=== PATIENT | male | born 1960 | race Caucasian/White ===

== ENCOUNTER 2024-05-02 06:28 | Day surgery (SDC) | payer BC, SELFPAY | END 2024-05-02 10:29 | disposition home or self-care (01) | LOC: GI 06:28 | PROVIDERS: ATTENDING PHYSICIAN Internal Medicine | DX: Z12.11 Encounter for screening for malignant neoplasm of colon (principal); K57.30 Diverticulosis of large intestine without perforation or abscess without bleeding; D12.8 Benign neoplasm of rectum; K63.5 Polyp of colon; Z86.0101 Personal history of adenomatous and serrated colon polyps | CPT/HCPCS: 45385; 45380; 88305 ==

== ENCOUNTER → 2024-05-09 06:39 | Day surgery (SDC) | payer BC, SELFPAY | LOC: GI 06:39 | PROVIDERS: ATTENDING PHYSICIAN Internal Medicine | DX: K29.50 Unspecified chronic gastritis without bleeding (principal); K22.89 Other specified disease of esophagus; K44.9 Diaphragmatic hernia without obstruction or gangrene; K31.7 Polyp of stomach and duodenum; I48.91 Unspecified atrial fibrillation; R13.10 Dysphagia, unspecified | CPT/HCPCS: 43251; 43239; 88305; 88342; 93005 ==

== ENCOUNTER → 2024-06-07 07:06 | Outpatient (REF) | payer BC, SELFPAY | LOC: RCS 07:06 | PROVIDERS: ATTENDING PHYSICIAN Internal Medicine Cardiovascular Disease; FAMILY PHYSICIAN Family Medicine | DX: I48.19 Other persistent atrial fibrillation (principal) | CPT/HCPCS: 93306 ==

== ENCOUNTER 2024-06-22 06:02 | Day surgery (SDC) | payer BC, SELFPAY ==
[2024-06-16 09:19] LABS: % Basophils 0.6 % (0-2); % Eosinophils 1.8 % (0-6); % Immature Granulocytes 0.2 % (0-0.5); % Lymphocytes 27.5 % (20.5-51.1); % Monocytes 7.2 % (1.7-9.3); % Neutrophils 62.7 % (42.2-75.2); Absolute Basophils 0.1 10^3/uL (0-0.2); Absolute Eosinophils 0.2 10^3/uL (0-0.7); Absolute Lymphocytes 2.6 10^3/uL (1.2-3.4); Absolute Monocytes 0.7 10^3/uL (0.1-0.6); Absolute Neutrophils 5.8 10^3/uL (1.4-6.5); Hematocrit 42.2 % (39.0-52.0); Hemoglobin 14.4 g/dL (13.0-18.0); Mean Corp Hgb Conc. 34.1 g/dL (33.0-37.0); Mean Corpuscular Hgb 28.1 pg (27.0-31.0); Mean Corpuscular Volume 82.4 fL (80.0-94.0); Mean Platelet Volume 9.3 fL (7.4-10.4); Nucleated Red Blood Cells % 0 % (-); Platelet Count 308 10^3/uL (130-400); Red Blood Cell Count 5.12 10^6/uL (4.70-6.10); Red Cell Dist. Width 14.2 % (11.5-14.5); White Blood Cell Count 9.3 10^3/uL (4.8-10.8)
[2024-06-16 09:29] LABS: INR 1.09; PT 14.7 Sec (11.4-14.6)
[2024-06-16 09:52] LABS: ALT (SGPT) 18 U/L (0-50); AST (SGOT) 22 U/L (17-59); Albumin 4.2 g/dl (3.5-5.0); Alkaline Phosphatase 95 U/L (38-126); Blood Urea Nitrogen 11 mg/dl (9-20); Calcium 9.5 mg/dl (8.4-10.2); Carbon Dioxide 25 mmol/L (22-30); Chloride 100 mmol/L (98-107); Glucose 111 mg/dl (70-99); Magnesium 1.8 mg/dl (1.6-2.3); Potassium 4.2 mmol/L (3.5-5.1); Sodium 138 mmol/L (135-145); Total Bilirubin 0.4 mg/dl (0.2-1.3); eGFR > 60.00
[2024-06-16 10:00] VITALS: BMI 39.9
[2024-06-22] VITALS (11 sets, daily range): BP systolic 110–145; BP diastolic 71–99; BMI 39.2
[2024-06-22 09:15] LABS: ACT-LR - POC 260 Seconds (116-155)
[2024-06-22 09:33] LABS: ACT-LR - POC 274 Seconds (116-155)
[2024-06-22 09:52] LABS: ACT-LR - POC 308 Seconds (116-155)
--- NOTE | 2024-06-22 11:07 | ITS.CL.ABL ---
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
Ablation
Procedure Report:
ELECTROPHYSIOLOGIC STUDY AND POSSIBLE ABLATION
DATE: June 22, 2024
Primary Care Provider: Dr Pepe Early
Primary Accident Examiner: Dr. Margarito Hughes
INDICATION:
Symptomatic Atrial Fibrillation.
Persistent
HISTORY: See H and P.
Symptomatic AF, poorly controlled with attempted medical therapy
HAS-BLED: 1
Age
CHADSVASc: 1
HTN
Additional atrial fibrillation risk factors include obstructive sleep apnea and morbid obesity.
PRESENTING RHYTHM: AF
HISTORY: See H and P.
Symptomatic AF, poorly controlled with attempted medical therapy.
ANTICOAGULATION: Eliquis 5 mg twice daily
'TIME-OUT': called and confirmed.
SEDATION/ANESTHESIA: provided via the anesthesia department using general anesthesia.
PROCEDURE:
Ultrasound Guidance performed by sc was utilized for femoral venous Vascular Access b/l.
A decapolar CS catheter was placed within the CS for mapping and pacing.
The intracardiac ultrasound catheter was positioned in the RA for continuous intracardiac ultrasound imaging.
Heparin bolus and infusion to target ACT at 300 -350 seconds was administered. Transseptal puncture was performed. This entailed advancing a sheath with dilator into the superior vena cava and withdrawing both (monitoring intracardiac ultrasound,
fluoroscopy and tip pressure) with the tip oriented toward the atrial septum. The fossa ovalis was engaged (indicated by sudden displacement of the sheath tip as well as tenting of the fossa seen on intracardiac ultrasound).
The Sazneo transseptal system was used. Left atrial catheter position was confirmed by echocardiographic imaging and fluoroscopy followed by RF delivery using the My [employer] system resulting in successful LA access with pressure monitoring
demonstrating LA pressure waveforms. The sheath was advanced over the dilator and positioned in the left atrium.
The PredictSpring Grid multipolar mapping catheter was initially positioned through the transseptal sheath for high density mapping.
He presented in atrial fibrillation and was cardioverted to sinus rhythm prior to electroanatomical mapping.
Geometry and voltage mapping was performed using the Sparrow multipolar grid catheter. Ensite-X was utilized for three-dimensional electroanatomical mapping.
A 3-D map was created using Ensite-X in Voxel mode. A 3-D reconstructed CT image was compared to the 3-D Navex map to assist in anatomic evaluation, mapping and ablation.
The [email or web address] catheter and system was used for cardiac ablation. Catheter positioning was guided and confirmed using both I.C.E. and fluoroscopy.
PV isolation approach was used to electrically isolate each PV ostia (LSPV, LIPV, RSPV, RIPV).
During PV isolation there were several instances of short runs of atrial tachycardia.
There was 1 episode of sustained left atrial tachycardia mapped just outside the left superior pulmonary vein posteriorly and towards the roof. This was targeted with pulsed electric field energy and with delivery of energy just outside the left
superior pulmonary vein towards its posterior/roof, the atrial tachycardia terminated.
He has persistent atrial fibrillation and demonstrated marked fractionation of the posterior wall as well as multiple runs of left atrial tachycardia most nonsustained but at least 1 sustained. Therefore decision was made to do additional ablation
lesion set to involve posterior wall electrical isolation which was accomplished using pulsed electric field ablation.
Remapping with the PredictSpring multipolar grid catheter found that there is still electrical reconnection at the right inferior pulmonary vein towards its anterior/septal and lower quadrant which required reintroduction of the ablation catheter and
ablation to eliminate electrical reconnection. All PVPs were eliminated at each vein demonstrating entrance block. Also pacing from the multipolar mapping catheter around the the circumference of the ostia was performed at 10 ma and 2.0 msec
output to assess for exit block. This demonstrated electrical isolation at each of the pulmonary vein ostia (LSPV, LIPV, RSPV, RIPV). There is also entrance and exit block at the LA posterior wall.
Programmed electrostimulation failed to induce any sustained arrhythmias.
I.C.E. :
Pre-Ablation Post-Ablation
LVEF: 55 % 55 %
WMA: none none
Pericardial effusion: trace post trace post
COMPLICATIONS:
None
SUMMARY:
- Mapping and ablation to isolate the PVs
- Additional AF ablation set after PVI.
- Mapping and ablation of second tachycardia (LA tachycardia)
- 3-D Electroanatomical Mapping
- Intracardiac Ultrasound
Post ablation, I discussed today's findings and results with the patient's and daughter.
RECOMMENDATIONS:
- Observe in monitored bed.
- Maintain oral anticoagulation.
- Office visit with EP RICA in 1-2 weeks
- Continue cardiovascular care with Dr Margarito Hughes
Copy to:
Dr Pepe Early
Dr. Margarito Hughes
[2024-06-22] MEDS: ANESTHETIC LOZENGE 1 LOZENGE PO (11:25)
--- NOTE | 2024-06-22 14:31 | W.PN.UPDATE ---
Update Note
Progress Note Update
64 yo WM s/p PVI (Same day). He denies cp, sob, sheeba diet, voiding, mild sore throat, b/l groins c/d/i no HT, soft, EKG SR with 1deg AVB intermittent 2nd deg type I. He will resume Eliquis tonight at home. Activity restrictions reviewed. He will f/u
Dr. Hughes in 2 mo. He is for d/c home after 3pm.
SUMMARY:
- Mapping and ablation to isolate the PVs
- Additional AF ablation set after PVI.
- Mapping and ablation of second tachycardia (LA tachycardia)
- 3-D Electroanatomical Mapping
- Intracardiac Ultrasound
Post ablation, I discussed today's findings and results with the patient's and daughter.
RECOMMENDATIONS:
- Observe in monitored bed.
- Maintain oral anticoagulation.
- Office visit with EP RICA in 1-2 weeks
- Continue cardiovascular care with Dr Margarito Hughes
Copy to:
Dr Pepe Early
Dr. Margarito Hughes
== END 2024-06-22 15:22 | disposition home or self-care (01) ==
LOC: CATH 06:02
PROVIDERS: ATTENDING PHYSICIAN Internal Medicine Cardiovascular Disease; FAMILY PHYSICIAN Family Medicine; OTHER PHYSICIAN Internal Medicine Cardiovascular Disease
DX: I48.19 Other persistent atrial fibrillation (principal); E66.01 Morbid (severe) obesity due to excess calories; G47.33 Obstructive sleep apnea (adult) (pediatric); I10 Essential (primary) hypertension; I47.19 Other supraventricular tachycardia
CPT/HCPCS: C1732; C1894; C1769; C1730; C1892; 36415; 75572; 80053; 83735; 85025; 85347; 85610; 86850; 86900; 86901; 93005; 93655; 93656; 93657; C1733; C1766; Q9967

== ENCOUNTER 2025-06-28 06:29 | Day surgery (SDC) | payer BC, SELFPAY | END 2025-06-28 10:34 | disposition home or self-care (01) | LOC: GI 06:29 | PROVIDERS: ATTENDING PHYSICIAN Internal Medicine | DX: K31.7 Polyp of stomach and duodenum (principal); Q39.9 Congenital malformation of esophagus, unspecified; K44.9 Diaphragmatic hernia without obstruction or gangrene | CPT/HCPCS: 43251; 43236; 88305 ==